=== PATIENT | female | born 1970 | race Two or more races ===

== ENCOUNTER 2023-06-13 07:29 | Outpatient (CLI) | payer OTHER | END 2023-06-13 07:31 | disposition home or self-care (01) | LOC: NUCLEAR 07:29 | PROVIDERS: ATTEND Family Medicine | DX: R22.31 Localized swelling, mass and lump, right upper limb (principal) | CPT/HCPCS: 78315; A9503 ==

== ENCOUNTER 2023-10-01 11:54 | Outpatient (CLI) | payer OTHER | END 2023-10-01 11:56 | disposition home or self-care (01) | LOC: SONOGRAMA 11:54 | PROVIDERS: ATTEND Pathology Anatomic Pathology & Clinical Pathology | DX: E04.1 Nontoxic single thyroid nodule (principal) ==

== ENCOUNTER → 2024-10-03 08:52 | Outpatient (CLI) | payer OTHER ==
[2024-10-03 10:25] LABS: PARTIAL THROMBOPLASTIN TIME 28.9 SECONDS (22.0-34.0); PROTHROMBIN TIME 10.9 SECONDS (9.0-11.5)
[2024-10-03 10:33] LABS: HEMATOCRIT 35.7 % (36.0-45.00); HEMOGLOBIN 12.1 g/dL (12.0-15.00); MEAN CELL VOLUME 86.1 fL (80.00-100.00); MEAN CORPUSCULAR HEMOGLOBIN 29.2 pg (27.00-32.0); MEAN CORPUSCULAR HGB CONC 33.8 g/dl (32.0-36.0); PLATELET COUNT 198 K/uL (150-450); RED BLOOD COUNT 4.14 M/uL (4.00-6.00); RED CELL DISTRIBUTION WIDTH 16.7 % (11.5-14.5)
[2024-10-03 10:42] LABS: ERYTHROCYTE SEDIMENTATION RATE 12 mm/hr
[2024-10-03 11:04] LABS: ALBUMIN 3.9 gm/dL (3.4-5.0); ALKALINE PHOSPHATASE 84 U/L (50-136); ALT/SGPT 23 U/L (12-78); ANION GAP 8 (10.0-20.0); AST/SGOT 19 U/L (15-37); BILIRUBIN TOTAL 0.59 mg/dL (0.3-1.2); BLOOD UREA NITROGEN 13 mg/dL (7-18); BUN CREA RATIO 17 (7.0-25.0); CALCIUM 9.6 mg/dL (8.5-10.1); CARBON DIOXIDE 29 mEq/L (21-32); CHLORIDE 111 mmol/L (98-107); CREATININE SERUM 0.77 mg/dL (0.55-1.02); FERRITIN 8.8 NG/ML (8-252); FREE TRIODOTIRONINE 2.55 pg/ml (2.18-3.98); GFR 78.12; GLOBULINA 2.7 G/DL (2.4-3.5); GLUCOSE FASTING 87 mg/dL (65-100); OSMOLALITY SERUM 286 MOSM/KG (275-295); POTASSIUM 4.23 mEq/L (3.5-5.1); SODIUM 144 mmol/L (136-145); T4 FREE 0.73 NG/ML (0.76-1.46); TOTAL IRON BINDING CAPACITY 399 ug/dl (250-450); TOTAL PROTEIN 6.6 gm/dL (6.4-8.2)
[2024-10-03 11:05] LABS: C-REACTIVE PROTEIN < 0.29 MG/DL (0.00-0.29)
[2024-10-03 11:10] LABS: FOLIC ACID > 20.00 ng/ml (4.78-20); VITAMIN D3 25 HYDROXY 27.79 ng/ml (30-120)
== END | disposition home or self-care (01) ==
LOC: LAB 08:52
PROVIDERS: ATTEND Obstetrics & Gynecology
DX: D50.9 Iron deficiency anemia, unspecified (principal); M06.9 Rheumatoid arthritis, unspecified; D64.9 Anemia, unspecified

== ENCOUNTER 2025-03-17 07:59 | Outpatient (CLI) | payer OTHER ==
[2025-03-17 08:57] LABS: BASO % 0.6 % (0.1-1.2); EOS # 0.11 (0.04-0.54); EOS % 3.3 % (0.7-7.0); LYMPH # 1.17 (1.18-3.74); LYMPH % 35.0 % (19.3-53.1); MEAN PLATELET VOLUME 10.60 fl (9.4-12.4); MONO # 0.28 (0.24-0.82); MONO % 8.4 % (4.7-12.5); NEUT # 1.75 (1.56-6.13); NEUT % 52.4 % (34.0-71.1); RED CELL DISTRIBUTION WIDTH 11.9 % (11.6-14.4)
[2025-03-17 09:14] LABS: ERYTHROCYTE SEDIMENTATION RATE 9 mm/hr (0-30)
[2025-03-17 10:12] LABS: FOLIC ACID > 20.00 ng/ml (4.78-20)
[2025-03-17 10:16] LABS: ALT/SGPT 32 U/L (12-78); AST/SGOT 20 U/L (15-37); BILIRUBIN TOTAL 0.84 mg/dL (0.3-1.2); BUN CREA RATIO 10 (7.0-25.0); CREATININE SERUM 0.86 mg/dL (0.55-1.02); FE 96.0 ug/dl (50-170); GFR 68.76; GLOBULINA 2.6 G/DL (2.4-3.5); GLUCOSE FASTING 87 mg/dL (65-100); LDH 173 U/L (84-246); OSMOLALITY SERUM 281 MOSM/KG (275-295); T4 FREE 0.78 NG/ML (0.76-1.46); TSH 4.580 uIU/mL (0.358-3.74)
[2025-03-18 09:11] LABS: ANTI THYROID PEROXIDASE 10.0 IU/mL (0-34); TRANSFERIN 292.0 mg/dL (192-364)
[2025-03-18 12:49] LABS: MANUAL PLATELET COUNT 258
[2025-03-19 13:08] LABS: PARIETAL CELL ANTIBODIES 7.7 Units (0.0-20.0)
== END 2025-03-17 08:05 | disposition home or self-care (01) ==
LOC: LAB 07:59
PROVIDERS: ATTEND Internal Medicine Hematology & Oncology
DX: E04.9 Nontoxic goiter, unspecified (principal); M06.9 Rheumatoid arthritis, unspecified; G62.9 Polyneuropathy, unspecified; D52.9 Folate deficiency anemia, unspecified; F33.9 Major depressive disorder, recurrent, unspecified; D50.8 Other iron deficiency anemias; R79.9 Abnormal finding of blood chemistry, unspecified; I10 Essential (primary) hypertension; R74.02 Elevation of levels of lactic acid dehydrogenase [LDH]; K76.89 Other specified diseases of liver; D63.8 Anemia in other chronic diseases classified elsewhere; D55.9 Anemia due to enzyme disorder, unspecified; D51.1 Vitamin B12 deficiency anemia due to selective vitamin B12 malabsorption with proteinuria; D03.8 Melanoma in situ of other sites; E06.3 Autoimmune thyroiditis; C73 Malignant neoplasm of thyroid gland; D64.9 Anemia, unspecified

== ENCOUNTER 2025-06-19 10:16 | Outpatient (CLI) | payer OTHER ==
[2025-06-19 11:13] LABS: BASO % 0.9 % (0.1-1.2); EOS # 0.15 (0.04-0.54); EOS % 3.5 % (0.7-7.0); LYMPH # 1.37 (1.18-3.74); LYMPH % 32.4 % (19.3-53.1); MEAN PLATELET VOLUME 10.40 fl (9.4-12.4); MONO # 0.36 (0.24-0.82); MONO % 8.5 % (4.7-12.5); NEUT # 2.30 (1.56-6.13); NEUT % 54.5 % (34.0-71.1); RED CELL DISTRIBUTION WIDTH 11.6 % (11.6-14.4)
[2025-06-19 12:44] LABS: ALT/SGPT 30.0 U/L (12-78); AST/SGOT 18.0 U/L (15-37); BILIRUBIN TOTAL 0.62 mg/dL (0.3-1.2); BUN CREA RATIO 14.0 (7.0-25.0); CREATININE SERUM 0.72 mg/dL (0.55-1.02); GFR 84.41; GLOBULINA 2.6 G/DL (2.4-3.5); GLUCOSE FASTING 89.0 mg/dL (65-100); LDH 148.0 U/L (84-246); OSMOLALITY SERUM 285.0 MOSM/KG (275-295); T4 FREE 0.7 NG/ML (0.76-1.46); TSH 1.86 uIU/mL (0.358-3.74)
== END 2025-06-19 10:18 | disposition home or self-care (01) ==
LOC: LAB 10:16
PROVIDERS: ATTEND Internal Medicine Hematology & Oncology
DX: E04.9 Nontoxic goiter, unspecified (principal); M06.9 Rheumatoid arthritis, unspecified; I10 Essential (primary) hypertension; G62.9 Polyneuropathy, unspecified; D52.8 Other folate deficiency anemias; F33.9 Major depressive disorder, recurrent, unspecified; D50.8 Other iron deficiency anemias; R74.02 Elevation of levels of lactic acid dehydrogenase [LDH]; K76.89 Other specified diseases of liver; E03.8 Other specified hypothyroidism